=== PATIENT | female | born 1940 | race Caucasian/White ===

== ENCOUNTER → 2017-10-21 12:01 | Outpatient (CLI) | payer MEDICARE, BC ==
[2015-01-01 09:54] VITALS: BMI 23.8
[~2017-10-21 12:01] MED LIST: ACIPHEX20 MG PO; ALTACE2.5 MG PO; ARICEPT5 MG PO; BAYER CHEWABLE81 MG PO; CALTRATE 600 M600 M1 PO; FARXIGA10 MG PO; HYDROCHLOROTHIA25 MG PO; LOVAZA1 G PO; METFORMIN HCL500 M1 PO; MOBIC7.5 MG PO; MYRBETRIQ25 MG PO; PRAVACHOL40 MG PO; TOPROL XL50 MG PO; VITAMIN D31000 UNIT PO; [UNRECOGNIZED DRUG - OTHER] PO
== END | disposition home or self-care (01) ==
LOC: D.CT 12:01
DX: N30.00 Acute cystitis without hematuria (principal)

== ENCOUNTER → 2018-06-16 12:13 | Outpatient (CLI) | payer MEDICARE, BC ==
[2015-01-01 09:54] VITALS: BMI 23.8
== END | disposition home or self-care (01) ==
LOC: D.NM 12:13
DX: R10.9 Unspecified abdominal pain (principal)

== ENCOUNTER → 2019-01-03 09:21 | Outpatient (CLI) | payer MEDICARE, BC ==
[2015-01-01 09:54] VITALS: BMI 23.8
== END | disposition home or self-care (01) ==
LOC: D.HCCARDIO 09:21
PROVIDERS: ATTEND Internal Medicine Cardiovascular Disease
DX: I34.0 Nonrheumatic mitral (valve) insufficiency (principal)

== ENCOUNTER → 2019-02-01 09:03 | Outpatient (CLI) | payer MEDICARE, BC ==
[2015-01-01 09:54] VITALS: BMI 23.8
== END | disposition home or self-care (01) ==
LOC: D.HCCARDIO 09:03
PROVIDERS: ATTEND Internal Medicine Cardiovascular Disease
DX: I20.9 Angina pectoris, unspecified (principal)

== ENCOUNTER 2019-02-16 07:27 | Outpatient (CLI) | payer MEDICARE, BC ==
[~2019-02-16] VITALS: Ht 165.1 cm; Wt 68.2 kg
--- NOTE | ~2019-02-16 | HEMODYNAMI ---
PATIENT:IRAM QUIGLEY MEDICAL RECORD: [id number] : 38 LOCATION:[facility] ADMISSION DATE: 02/16/19 Generatedon:02/16/201912:23 Patient name: IRAM QUIGLEY Patient #: [id number] SSN : : 1940 Date of study: 02/16/2019 Page: Of Hemodynamic Procedure Report Patient Data Patient Demographics Procedure consent was obtained First Name: IRAM Gender: Female Last Name: SORAIDA : 1940 Middle Initial: ANSELMO Age: 78 year(s) Patient #: [id number] Race: Unknown Additional ID: [id number] Contact details [address]: [address] [place] [address] [place] [facility] [place] Zip code: [address] Past Medical History Allergies Allergen Reaction Date Comments Reported Penicillins 01/01/2015 Other allergy 01/01/2015 NEXIUM, PRILOSEC Admission Admission Data Admission Date: 02/16/2019 Admission Time: 7:27 Procedure Procedure Types Cath Procedure Diagnostic Procedure C LHC w/Coronaries Procedure Description Procedure Date Procedure Date: 02/16/2019 Procedure Start Time: 12:08 Procedure End Time: 12:20 Procedure Staff Name Function Oswaldo Gong MD Performing Physician Maya Steward RT Monitor Amanda Maya RT Scrub Debbie Walker RN Nurse Procedure Data Cath Procedure Fluoroscopy Diagnostic fluoroscopy Total fluoroscopy Time: 1.6 time: 1.6 min min Diagnostic fluoroscopy Total fluoroscopy dose: 401 dose: 401 mGy mGy Contrast Material Contrast Material Type Amount (ml) Isovue 370 38 Entry Location Entry Primary Successful Side Size Upsize Upsize Entry Closure Shelton ccessful Closure Location (Fr) 1 (Fr) 2 (Fr) Remarks Device Remarks Radial Right 6 Fr Mechanical artery Short Compression Estimated blood loss: 5 ml Diagnostic catheters Device Type Used For End Catheter Placement DIAGNOSTIC [place] 110cm 5 Multi-vessel Fr catheter ([id number]) Angiography Procedure Complications No complications Procedure Medications Medication Administration Route Dosage 0.9% NaCl I.V. 100 ml/hr Oxygen etCO2 Nasal cannula 2 l/min Lidocaine 2% added to field 20 Heparin Flush Bag added to field 2 bags (1000units/500ml NS) Radial Cocktail added to field 1 syringe (Verapamil 2mg/Nitro 400mcg/Heparin 1500units) Versed I.V. 2 mg Fentanyl I.V. 50 mcg Fentanyl I.V. 50 mcg Hemodynamics Rest Heart Rate: 81 (bpm) Pressure Samples Time Site Value (mmHg) Purpose Heart Use Rate(bpm) 12:13 LV 134/-11,1 Snapshot 85 12:14 AO (85) Pullback 73 12:14 LV 132/-11,-10 Pullback 73 Gradients Valve Time Site 1 Site Mean SEP/DFP Peak To Heart Use 2 (mmHg) (sec/min) Peak Rate (mmHg) (bpm) Aortic 12:14 LV AO 73 132/-11,-10 (85) Snapshots Pre Cath Intra NCS Post Cath Vital Signs Time Heart Resp SPO2 etCO2 NIBP (mmHg) Rhythm Pain Sedation Rate (ipm) (%) (mmHg) Status Level (bpm) 11:57:41 82 12 100 31.6 152/87(138) NSR 0 (11) 10(A) , No pain 12:01:57 80 16 100 17.3 165/83(135) NSR 0 (11) 10(A) , No pain 12:06:21 82 18 97 18.6 155/78(107) NSR 0 (11) 10(A) , No pain 12:10:41 80 17 96 14.3 155/78(129) NSR 0 (11) 10(A) , No pain 12:15:41 82 16 97 11.3 Measuring NSR 0 (11) 10(A) , No pain 12:15:49 82 16 98 11.3 127/62(102) NSR 0 (11) 9(A) , No pain 12:20:56 84 13 98 14 153/71(115) NSR 0 (11) 10(A) , No pain Medications Time Medication Route Dose Verified Delivered Reason Notes E ffectiveness by by 11:56:52 0.9% NaCl I.V. 100 Oswaldo Debbie used for ml/hr Beltran Walker glass bender 11:56:58 Oxygen etCO2 2 l/min Oswaldo Debbie used for Nasal Beltran Walker procedure cannula RN 11:57:04 Lidocaine 2% added 20ml Oswaldo Oswaldo for local to vial Beltran Gong MD anesthetic field 11:57:10 Heparin Flush added 2 bags Oswaldo Oswaldo used for Bag to Beltran Gong MD procedure (1000units/500ml field NS) 11:57:16 Radial Cocktail added 1 Oswaldo Oswaldo used for (Verapamil to syringe Beltran Gong MD procedure 2mg/Nitro field 400mcg/Heparin 1500units) 12:05:03 Versed I.V. 2 mg Oswaldo Debbie for Beltran Walker sedation RN 12:05:08 Fentanyl I.V. 50 mcg Oswaldo Debbie for Beltran Walker sedation RN 12:10:41 Fentanyl I.V. 50 mcg Oswaldo Debbie for Beltran Walker sedation manufacturing laborer Log Time Note 11:43:52 Amanda Maya RT(R) sent for patient. Start room use. 11:43:53 Time tracking: Regular hours (M-F 7:00 - 5:00) 11:43:58 Plan of Care:Hemodynamics will remain stable., Cardiac rhythm will remain stable., Comfort level will be maintained., Respiratory function will remain adequate., Patient/ family verbilizes understanding of procedure., Procedure tolerated without complication., Recovers from procedure without complications.. 11:56:41 Vital chart was started 11:56:52 0.9% NaCl 100 ml/hr I.V. was administered by Debbie Walker RN; used for procedure; 11:56:58 Oxygen 2 l/min etCO2 Nasal cannula was administered by Debbie Walker RN; used for procedure; 11:57:04 Lidocaine 2% 20ml vial added to field was administered by Oswaldo Gong MD; for local anesthetic; 11:57:10 Heparin Flush Bag (1000units/500ml NS) 2 bags added to field was administered by Oswaldo Gong MD; used for procedure; 11:57:16 Radial Cocktail (Verapamil 2mg/Nitro 400mcg/Heparin 1500units) 1 syringe added to field was administered by Oswaldo Gong MD; used for procedure; 12:02:26 Patient received from Pre/Post Procedure Room to [facility] 2 Alert and oriented. Tansferred to table in Supine position. 12:02:27 Warm blankets applied, and keerthi hugger turned on for patient comfort. 12:02:28 Correct patient and procedure confirmed by team. 12:02:29 Signed procedure consent form obtained from patient. 12:02:30 ECG and BP/O2 sat monitors applied to patient. 12:02:31 Baseline sample Acquired. 12:02:34 Rhythm: sinus rhythm 12:02:37 Full Disclosure recording started 12:02:40 H&P Date Dictated: 02/16/2019 Within 30 days and on chart., H&P Addendum completed by physician on day of procedure. (MUST COMPLETE FOR ALL OUTPATIENTS). 12:02:42 Pre-procedure instructions explained to patient. 12:02:42 Pre-op teaching completed and patient verbalized understanding. 12:02:43 Family in waiting room. 12:02:45 Patient NPO since Midnight. 12:02:47 Is the patient allergic to Iodine/contrast media? Unknown. 12:02:59 Was the patient premedicated? Yes 12:03:00 Is patient on blood thinner?No 12:03:01 Patient diabetic? Yes. 12:03:02 If diabetic: On Metformin? Yes 12:03:05 If on Metformin: Last Dose? 02/14/2019 12:03:07 Previous problem with sedation/anesthesia? No ? 12:03:09 Snore? No 12:03:10 Sleep apnea? No 12:03:11 Deviated septum? No 12:03:11 Opens mouth fully? Yes 12:03:12 Sticks out tongue? Yes 12:03:14 Airway obstruction? No ? 12:03:16 Dentures? No ? 12:03:20 Pre procedure: right dorsailis pedis pulse 2+ Normal; easily identifiable; not easily obliterated 12:03:22 Pre procedure: left dorsailis pedis pulse 2+ Normal; easily identifiable; not easily obliterated 12:03:24 Patient pain scale 0/10 ?. 12:03:26 Modified Wm's test Radial < 7 seconds 12:03:30 IV patent on arrival in left forearm with 0.9% NaCl at KVO. 12:03:32 Lab results completed and on chart. 12:03:35 Right Radial & Right Groin area was prepped with chlora-prep and draped in sterile fashion 12:03:36 Alarms reviewed by RGasper N. 12:03:37 Sharps counted by scrub and verified by [email or web address] 12:03:40 Physician arrived 12:03:41 --------ALL STOP TIME OUT------ 12:03:42 Final Timeout: patient, procedure, and site verified with staff and physician. All members of the team are in agreement. 12:03:44 Right Radial & Right Groin site verified by team. 12:03:48 Maximum allowable Isovue 370 dose 300ml. Physician notified. (300ml for normal creatinines. For patients with creatinine of 1.7 or higher multiply weight(kg) x 5 divided by creatinine.) 12:03:51 Fire Safety Assessment: A--An alcohol-based skin anteseptic being used preoperatively., C--Open oxygen or nitrous oxide is being used., D--An ESU, laser, or fiber-optic light is being used. 12:03:53 Physical assessment completed. ASA score P 2 - A patient with mild systemic disease as per Oswaldo Gong MD. 12:03:56 Sedation plan: IV Moderate Sedation Medication:Versed, Fentanyl 12:05:03 Versed 2 mg I.V. was administered by Debbie Walker RN; for sedation; 12:05:08 Fentanyl 50 mcg I.V. was administered by Debbie Walker RN; for sedation; 12:05:56 Use device set Radial Dx or PCI 12:05:57 ACIST Syringe (08557) opened to sterile field. 12:05:57 Medline Cath Pack ([id number]) opened to sterile field. 12:05:58 Bag Decanter (2002S) opened to sterile field. 12:05:58 DIAGNOSTIC WIRE .035 260cm J wire (202956) opened to sterile field. 12:05:58 ACIST Hand Control (15892) opened to sterile field. 12:05:59 ACIST Manifold (69593) opened to sterile field. 12:05:59 Tegaderm 4 x 4 (1626W) opened to sterile field. 12:06:00 MBrace Wrist Support ([id number]) opened to sterile field. 12:06:01 NEEDLE Cook 21G 4cm Radial (M29417) opened to sterile field. 12:06:02 SHEATH 6FR Slender (72-1060) opened to sterile field. 12:08:52 Procedure started. 12:08:56 Local anesthetic to right radial artery with Lidocaine 2% by Oswaldo Gong MD.INITIAL ACCESS ONLY 12::41 Fentanyl 50 mcg I.V. was administered by Debbie Walker RN; for sedation; 12:11:22 A 6 Fr Short sheath was inserted into the Right Radial artery 12:11:28 A DIAGNOSTIC [place] 110cm 5 Fr catheter (375872) was advanced over the wire and used for Multi-vessel Angiography. 12:13:46 LV hemodynamics recorded. 12:13:47 LV gram done using TAPIA 12:13:49 Injector settings: Ml/sec: 5, Volume: 15, 12:13:56 EF : 60 % 12:14:46 LCA angiography performed. 12:14:50 Injector settings: Ml/sec: 3, Volume: 6, 12:16:09 RCA angiography performed. 12:16:12 Injector settings: Ml/sec: 3, Volume: 6, 12:16:30 TR BAND Standard ([id number]) opened to sterile field. 12:16:33 TR BAND Large ([id number]) opened to sterile field. 12:17:02 Sheath removed intact; hemostasis achieved with Mechanical Compression to the Right Radial artery. 12:17:11 Procedure ended.(Physican Out) 12:17:23 Fluoroscopy time 01.60 minutes. 12:17:27 Flurop Dose total: 401 12:17:27 Fluoroscopy dose: 401 mGy 12:17:30 Contrast amount:Isovue 370 38ml. 12:17:31 Sharps counted by scrub and verified by R.N. 12:17:34 TR band inflated with 10cc of air. 12:17:35 Insertion/operative site no bleeding no hematoma. 12:17:38 Post right radial artery:stable 12:17:39 Post Procedure Pulses reassessed and unchanged 12:17:41 Post procedure rhythm: unchanged. 12:17:44 Estimated blood loss: 5 ml 12:17:52 Post procedure instruction explained to patient.Patient verbalizes understanding. 12:17:52 Patient needs reinforcement of post procedure teaching. 12:18:24 Procedure and supply charges have been captured, reviewed, submitted and are correct. 12:19:38 Procedure Complication : No complications 12:19:45 Vital chart was stopped 12:19:45 See physician's report for complete and final results. 12:19:57 Report given to Pre/Post Procedure Room. 12:20:00 Patient transfered to Pre/Post Procedure Room with Stretcher. 12:20:03 Procedure ended. 12:20:03 Full Disclosure recording stopped 12:20:06 End room use (Document Last) Device Usage Item Name Manufacture Quantity Catalog Hospital Part Current Minimal Lot# / Number Charge Number Stock Stock Serial# Code ACIST Acist 1 62808 [id number] 680529 393181 20 Syringe Medical (12633) Systems Inc Medline Medline 1 [id number] 414062 79316 818399 5 Cath Pack ([id number]) Bag Microtek 1 2001S 101816 94598 571957 5 Decanter Medical Inc. () DIAGNOSTIC [place] 1 219461 765649 832008 253538 30 WIRE .035 260cm J wire (460657) ACIST Hand Acist 1 16412 658815 112604 971136 5 Control Medical (66950) Systems Inc ACIST Acist 1 84996 413064 591258 304383 5 Manifold Medical (89850) Systems Inc Tegaderm 4 3M 1 1626W 090002 935056 166625 5 x 4 (1626W) MBrace Advanced 1 140-0250-00 182341 11257 865254 5 Wrist Vascular Support Dynamics ([id number]) NEEDLE Echolocation Medical 1 Z67680 684627 953386 264673 5 21G 4cm Radial (F78693) SHEATH 6FR Terumo 1 [id number] 878739 131488 901103 5 Slender (80-1060) DIAGNOSTIC Terumo 1 40-5013 800544 480513 038811 5 [place] 110cm 5 Fr catheter (680050) TR BAND Terumo 1 [id number] 731274 233973 869688 40 Standard (EKU20VME) TR BAND Terumo 1 [id number] 203589 185356 481385 40 Large ([id number]) Signature Audit Mcgee Stage Time Signature Unsigned Intra-Procedure 02/16/2019 Maya Steward 12:23:52 PM RT(R) Signatures Monitor : Maya Steward RT Signature : Date : Time : [address] [place] [address]
[2019-02-16 08:28] VITALS: BP 166/87; Ht 165.1 cm; Wt 68.2 kg
[2019-02-16 08:56] LABS: BASOPHILS 0.4 % (0-2); EOSINOPHILS 3.6 % (0-7); HEMATOCRIT 37.5 % (36.0-48.0); HEMOGLOBIN 12.3 g/dL (12-16); IMMATURE GRANULOCYTES 0.2 % (0-5); LYMPHOCYTES 32.9 % (15-50); MCH 28.8 pg (26.0-34.0); MCHC 32.8 g/dL (31.0-37.0); MCV 87.8 fL (80.0-100.0); MEAN PLATELET VOLUME 10.1 fL (7.4-10.4); MONOCYTES 11.9 % (2-11); PLATELET COUNT 202 10x3/uL (130-400); RBC 4.27 10x6/uL (4.00-5.40); RDW 13.3 % (11.5-14.5); WBC 5.6 10x3/uL (4.8-10.8)
[2019-02-16 09:08] LABS: CALC OSMOLALITY 292 mosm/kg (275-300); CARBON DIOXIDE 31.3 mmol/L (21.0-32.0); CHLORIDE - SERUM 105 mmol/L (98-107); CREATININE - SERUM 0.7 mg/dL (0.6-1.3); POTASSIUM - SERUM 4.3 mmol/L (3.5-5.1); SODIUM 144 mmol/L (136-145); UREA NITROGEN 25 mg/dL (7-18); eGFR NON AFRICAN AMERICAN 85 mL/min (90-120)
[2019-02-16 09:13] LABS: GLUCOSE 134 mg/dL (74-106)
--- NOTE | 2019-02-16 12:41 | NUR ---
RECIEVED TO ROOM VIA STRETCHER FROM RESIDENTIAL BUILDER WITH TR BAND TO R/WRIST CDI NO BLEEDING OR HEMATOMA NOTED. PATIENT CONNECTED TO MONITOR FOR OBSERVATION WITH HR 82 BP 173/67 CHEST PAIN IS DENIED
--- NOTE | 2019-02-16 12:45 | NUR ---
TR BAND TO R/WRIST IS CDI WITH NO BLEEDING OR HEMATOMA. PATIENT TOLERATING SANDWICH AND SODA WITH NAUSEA DENIED. CALL LIGHT IS IN REACH WITH AT BEDSIDE
--- NOTE | 2019-02-16 13:09 | NUR ---
RESTING QUIETLY NO DISTRESS NOTED. VSS AND TR BAND IS CDI
--- NOTE | 2019-02-16 13:28 | NUR ---
REPOSITIONED TO HOB UP 30 FOR COMFORT. TR BAND TO R/WRIST REMAINS CDI WITH NO BLEEDING OR HEMATOMA. VSS AND CHEST PAIN IS DENIED
--- NOTE | 2019-02-16 13:45 | NUR ---
PIV REMOVED WITH PATIENT UP TO BATHROOM NO DISTRESS. TR BAND REMAINS CDI WITH NO BLEEDING NOTED
--- NOTE | 2019-02-16 14:07 | NUR ---
2 CC AIR REMOVED FROM TR BAND WITH NO BLEEDING NOTED
--- NOTE | 2019-02-16 14:10 | NUR ---
2 CC AIR REMOVED FROM TR BAND NO BLEEDING OR HEMATOMA NOTED. PATIENT DENIED CHEST PAIN.
--- NOTE | 2019-02-16 14:17 | NUR ---
VERBAL AND WRITTEN DISCHARGE GONE OVER WITH PATIENT AND BOTH VERBALIZED UNDERSTANDING. TR BAND TO R/WRIST IS CDI WITH 2 CC AIR REMOVED
--- NOTE | 2019-02-16 14:30 | NUR ---
TR BAND REMOVED WITH DRESSING APPLIED NO BLEEDING NOTED. PATIENT LEFT VIA WC TO PARKING FOR RIDE HOME WITH FAMILY NO DISTRESS
== END 2019-02-16 14:31 | disposition home or self-care (01) ==
LOC: D.CATH 07:27
PROVIDERS: ATTEND Internal Medicine Cardiovascular Disease
DX: I20.9 Angina pectoris, unspecified (principal); Z01.812 Encounter for preprocedural laboratory examination

== ENCOUNTER 2019-04-26 11:13 | Emergency (ER) | payer MEDICARE, BC ==
[~2019-04-26] VITALS: Ht 165.1 cm; Wt 68.2 kg
[2019-04-26 11:31] VITALS: Ht 165.1 cm; Wt 68.2 kg
[2019-04-26] MEDS ORDERED: TRULICITY0.75 MG/0. SC (11:36)
[2019-04-26] MEDS ORDERED: OSPHENA (11:37)
[2019-04-26] MEDS ORDERED: ICAPS (11:38)
[2019-04-26] MEDS ORDERED: HYDROCODON-ACE1 EAC7 PO (13:43)
[2019-04-26 14:18] VITALS: BP 151/64
== END 2019-04-26 14:17 | disposition home or self-care (01) ==
LOC: D.ER 11:13
DX: S61.310A Laceration without foreign body of right index finger with damage to nail, initial encounter (principal); W23.0XXA Caught, crushed, jammed, or pinched between moving objects, initial encounter; E11.40 Type 2 diabetes mellitus with diabetic neuropathy, unspecified; I10 Essential (primary) hypertension; S62.601A Fracture of unspecified phalanx of left index finger, initial encounter for closed fracture

== ENCOUNTER 2019-06-01 08:00 | Day surgery (SDC) | payer MEDICARE, BC ==
[2019-05-31 15:15] LABS: HEMATOCRIT 37.7 % (36.0-48.0); MCH 29.9 pg (26.0-34.0); MCHC 34.5 g/dL (31.0-37.0); MCV 86.7 fL (80.0-100.0); RBC 4.35 10x6/uL (4.00-5.40); RDW 13.9 % (11.5-14.5); WBC 6.3 10x3/uL (4.8-10.8)
[2019-05-31 15:39] LABS: ANION GAP 15.9 mmol/L (8-16); CALCIUM 8.9 mg/dL (8.5-10.1); CARBON DIOXIDE 26.3 mmol/L (21.0-32.0); CREATININE - SERUM 1.1 mg/dL (0.6-1.3); POTASSIUM - SERUM 4.2 mmol/L (3.5-5.1)
[~2019-06-01] VITALS: Ht 165.1 cm; Wt 68.9 kg
[~2019-06-01 08:00] MED LIST changes: +ALTACE1.25 MG PO; -ALTACE2.5 MG PO; +HYDROCODON-ACE1 EAC7 PO; +ICAPS; +OSPHENA; +TRULICITY0.75 MG/0. SC; +ZOFRAN ODT4 MG/UDTAB; +ZPAK PO
[2019-06-01] MEDS ORDERED: MEDROL4 MG PO (08:20)
[2019-06-01] MEDS ORDERED: CIPRO500 MG PO (08:20)
[2019-06-01 08:22] VITALS: BP 183/84; Ht 165.1 cm; Wt 68.9 kg
--- NOTE | 2019-06-01 08:54 | NUR ---
ANTISEPTIC NASAL SWABS NOT USED DUE TO ALLERGY
[2019-06-01] MEDS ORDERED: HYDROCODON-ACE1 EA10 PO (11:36)
--- NOTE | 2019-06-01 13:21 | NUR ---
DC INSTRUCTIONS REVIEWED AT THIS TIME, PT VERBALIZES UNDERSTANDING. PT IV REMOVED AT THIS TIME, INTACT NO REDNESS OR SWELLING NOTED AT SITE.
--- NOTE | 2019-06-01 13:30 | NUR ---
PT LEAVING OPS AT THIS TIME VIA WC. NAD NOTED.
--- NOTE | 2019-06-04 14:19 | OP ---
PATIENT NAME: IRAM QUIGLEY MEDICAL RECORD: [id number] :38 LOCATION:D.OPS ADMISSION DATE: SURGEON: PHUONG DIAMOND MD DATE OF OPERATION: 06/01/2019 PREOPERATIVE DIAGNOSIS: Mucinous cyst, left thumb IP joint. POSTOPERATIVE DIAGNOSIS: Mucinous cyst, left thumb IP joint. PROCEDURE: Excision of mucinous cyst, left thumb IP joint. SURGEON: Phuong Diamond MD ANESTHESIA: General. INTRAOPERATIVE COMPLICATIONS: None. SUMMARY OF PATHOLOGIC FINDINGS: The patient had a very small rent in the thumb capsule. The cyst was removed in its entirety and sent for specimen and the rent in the capsule was oversewn with a 3-0 Vicryl. OPERATIVE SUMMARY IN DETAIL: After obtaining the appropriate preoperative orthopedic surgery consent as well as anesthetic consultation, evaluation and clearance, the patient was brought to the operating room and placed on the operating table in supine position. After adequate general laryngeal mask airway was administered, a tourniquet was placed about the proximal aspect of the left upper extremity. Left upper extremity was then prepped and draped in routine sterile fashion. The arm was elevated and exsanguinated and tourniquet was inflated to 250 mmHg. Elliptical incision was made about the area of the cyst including skin tag. This was taken down to the level of the capsule. When capsule was noted, the cyst was excised in its entirety. This was then irrigated and the small rent in the IP capsule was closed with 3-0 Vicryl in ulgoas-oc-crbat fashion. This was then closed with 4-0 Prolene in interrupted fashion by Bishnu Kuo. Digital block was applied. The patient was awakened and taken to recovery room in stable condition. All final needle and sponge counts were correct. TRANSINT:[id number] Voice Confirmation ID: [id number] DOCUMENT ID: [id number] PHUONG DIAMOND MD at 1419 CC: [id number] DICTATION DATE: 06/02/19905 TELEGRAPH MESSENGER: 06/02/19 0938 [facility] 06/01/19 [address] [place] [address]
== END 2019-06-01 13:30 | disposition home or self-care (01) ==
LOC: D.OPS 08:00 → D.PAN 09:10 → D.OPS 09:30 → D.PAN 10:30 → D.OPS 11:10
PROVIDERS: Anesthesiology; ATTEND Orthopaedic Surgery
DX: M25.842 Other specified joint disorders, left hand (principal); Z01.812 Encounter for preprocedural laboratory examination

== ENCOUNTER 2019-12-13 13:54 | Inpatient (IN) | payer MEDICARE, BC ==
[~2019-12-13] VITALS: Ht 165.1 cm; Wt 70.5 kg
[~2019-12-13 13:54] MED LIST changes: +CIPRO500 MG PO; +HYDROCODON-ACE1 EA10 PO; -ICAPS; +ICAPS PO; +MEDROL4 MG PO; -OSPHENA; +OSPHENA PO; -ZOFRAN ODT4 MG/UDTAB; +ZOFRAN ODT4 MG/UDTAB PO
--- NOTE | 2019-12-13 14:24 | NUR ---
FLU, RSV, AND STREP SWABS COLLECTED AND SENT TO LAB VIA TUBE SYSTEM
[2019-12-13 15:00] VITALS: BP 147/57
[2019-12-13 15:11] LABS: BASOPHILS 0.4 % (0-2); EOSINOPHILS 0.4 % (0-7); HEMATOCRIT 38.3 % (36.0-48.0); HEMOGLOBIN 12.4 g/dL (12-16); LYMPHOCYTES 21.6 % (15-50); MCH 28.7 pg (26.0-34.0); MCHC 32.4 g/dL (31.0-37.0); MCV 88.7 fL (80.0-100.0); MEAN PLATELET VOLUME 9.8 fL (7.4-10.4); MONOCYTES 13.2 % (2-11); NEUTROPHILS 64.4 % (40-80); RBC 4.32 10x6/uL (4.00-5.40); RDW 13.5 % (11.5-14.5); WBC 5.5 10x3/uL (4.8-10.8)
[2019-12-13 15:15] LABS: PLATELET COUNT 163 10x3/uL (130-400)
[2019-12-13 15:33] LABS: ANION GAP 15.2 mmol/L (8-16); CALCIUM 8.8 mg/dL (8.5-10.1); CARBON DIOXIDE 25.5 mmol/L (21.0-32.0); CREATININE - SERUM 1.1 mg/dL (0.6-1.3); POTASSIUM - SERUM 3.7 mmol/L (3.5-5.1)
[2019-12-13 15:37] LABS: BILIRUBIN - TOTAL 0.22 mg/dL (0.2-1.3); PROTEIN - SERUM 6.5 g/dL (6.4-8.2)
--- NOTE | 2019-12-13 15:49 | NUR ---
POSITIVE STREP CALLED FROM LAB. REPORTED TO PROVIDER NICOLA.
[2019-12-13 16:00] VITALS: BP 158/68
[2019-12-13] MEDS ORDERED: ALTACE1.25 MG PO ×2 (18:41→18:42)
[2019-12-13] MEDS ORDERED: TOPROL XL25 MG PO (18:41)
[2019-12-13] MEDS ORDERED: DONEPEZIL HCL10 MG PO (18:43)
--- NOTE | 2019-12-13 18:53 | NUR ---
REPORT GIVEN TO ZULMA LYONS
[2019-12-14] VITALS (7 sets, daily range): BP systolic 105–140; BP diastolic 53–70; Ht 165.1 cm; Wt 70.5 kg
[2019-12-14 04:38] LABS: BASOPHILS 0.2 % (0-2); EOSINOPHILS 1.9 % (0-7); HEMATOCRIT 36.4 % (36.0-48.0); HEMOGLOBIN 11.6 g/dL (12-16); LYMPHOCYTES 26.6 % (15-50); MCH 28.4 pg (26.0-34.0); MCHC 31.9 g/dL (31.0-37.0); MONOCYTES 12.5 % (2-11); NEUTROPHILS 58.8 % (40-80); PLATELET COUNT 164 10x3/uL (130-400); RBC 4.09 10x6/uL (4.00-5.40); RDW 13.6 % (11.5-14.5); WBC 5.4 10x3/uL (4.8-10.8)
[2019-12-14 04:39] LABS: APTT 29.3 SECONDS (22.8-39.4); INR 1.02 (0.85-1.17); PROTIME 13.4 SECONDS (11.6-15.0)
[2019-12-14 05:02] LABS: ANION GAP 10.9 mmol/L (8-16); CALCIUM 8.6 mg/dL (8.5-10.1); CARBON DIOXIDE 29.1 mmol/L (21.0-32.0); CREATININE - SERUM 1.1 mg/dL (0.6-1.3); MAGNESIUM - SERUM 1.6 mg/dL (1.8-2.4); PHOSPHOROUS 4.1 mg/dL (2.5-4.9)
--- NOTE | 2019-12-14 09:36 | NUR ---
I have reviewed this patient and I concur with the Shift Assessment completed by the Licensed Practical Nurse today this shift.
--- NOTE | 2019-12-14 12:17 | NUR ---
PT RESTING IN BED, VSS. TRAY SET UP PROVIDED. FSBS OBTAINED. CALL LIGHT WITHIN REACH, WILL CONT TO FOLLOW POC
[2019-12-14 15:15] LABS: BILIRUBIN NEGATIVE (NEGATIVE); GLUCOSE NEGATIVE (NEGATIVE); KETONE NEGATIVE (NEGATIVE); NITRITE NEGATIVE (NEGATIVE); UROBILINOGEN NORMAL (NORMAL)
--- NOTE | 2019-12-14 17:32 | NUR ---
PT RESTING IN BED, VSS AND WNL. BED ALARM ON. NO SIGNS OF DISTRESS NOTED, CALL LIGHT WITHIN REACH, WILL CONT TO FOLLOW POC
[2019-12-14 18:07] LABS: T4 THYROXINE 10.2 ug/dL (4.7-13.3); THYROID STIMULATING HORMONE 1.71 uIU/mL (0.36-3.74)
[2019-12-15] VITALS (7 sets, daily range): BP systolic 105–149; BP diastolic 60–76
[2019-12-15 06:49] LABS: ANION GAP 15.2 mmol/L (8-16); CALCIUM 8.4 mg/dL (8.5-10.1); CARBON DIOXIDE 27.4 mmol/L (21.0-32.0); MAGNESIUM - SERUM 1.5 mg/dL (1.8-2.4); POTASSIUM - SERUM 3.6 mmol/L (3.5-5.1)
[2019-12-15 07:00] LABS: BASOPHILS 0.2 % (0-2); EOSINOPHILS 2.8 % (0-7); HEMATOCRIT 36.3 % (36.0-48.0); HEMOGLOBIN 11.7 g/dL (12-16); IMMATURE GRANULOCYTES 0.2 % (0-5); LYMPHOCYTES 25.5 % (15-50); MCH 28.5 pg (26.0-34.0); MCHC 32.2 g/dL (31.0-37.0); MCV 88.3 fL (80.0-100.0); MEAN PLATELET VOLUME 9.9 fL (7.4-10.4); MONOCYTES 11.3 % (2-11); PLATELET COUNT 173 10x3/uL (130-400); RBC 4.11 10x6/uL (4.00-5.40); RDW 13.4 % (11.5-14.5); WBC 6.5 10x3/uL (4.8-10.8)
--- NOTE | 2019-12-15 07:30 | NUR ---
PT RESTING IN BED, VSS AND WNL. CALL LIGHT WITHIN REACH. SHIFT ASSESSMENT PERFORMED, DENIES ANY FURTHER NEEDS AT THIS TIME, WILL CONT TO FOLLOW POC
--- NOTE | 2019-12-15 12:17 | NUR ---
TRAY SET UP PROVIDED, VSS AND WNL. FSBS OBTAINED. CALL LIGHT WITHIN REACH, NO SIGNS OF DISTRESS NOTED AT THIS TIME, DENIES ANY FURTHER NEEDS, WILL CONT TO FOLLOW POC
--- NOTE | 2019-12-15 16:21 | MORECARE ---
CASE MANAGEMENT DISCHARGE SUMMARY PATIENT: IRAM QUIGLEY UNIT: [id number] ADM DATE: 12/13/19 AGE: 79 : 39 SEX: F ROOM/BED: D.2133 AUTHOR: SARAH GANDARA PHYSICIAN: REFERRING PHYSICIAN: CHRISSY BIRMINGHAM MD DATE OF SERVICE: 12/15/19 Discharge Plan Patient Name: IRAM QUIGLEY Facility: [facility]:[place] : 1940 Planned Disposition: Home Anticipated Discharge Date: Discharge Date: Expected LOS: Initial Reviewer: [email or web address] Initial Review Date: 12/13/2019 Generated: 12/15/19 5:20 pm DCPIA - Discharge Planning Initial Assessment Updated by [email or web address]: Alisia Morfin on 12/15/19 4:17 pm * Is the patient Alert and Oriented? Yes * How many steps to enter\exit or inside your home? * PCP VICENTE * [facility] * Preadmission Environment Home with Family * ADLs Independent * Other Equipment BSC, NEBULIZER * List name and contact numbers for known caregivers / representatives who currently or will assist patient after discharge: GILMA - DAUGHTER - [phone] NAHUN - - [phone] * Verbal permission to speak to the caregivers and representatives has been obtained from the patient. N/A * Community resources currently utilized None * Additional services required to return to the preadmission environment? No * Can the patient safely return to the preadmission environment? Yes * Has this patient been hospitalized within the prior 30 days at any hospital? No Patient Name: IRAM QUIGLEY Page 60305 at 1621 All edits/amendments must be made on the electronic document DICTATION DATE: 12/15/191619 BONE DRIER: VENKATA 12/15/191619 RPT#: [id number] DC DATE: STATUS: ADM IN [facility] [address] [place] [address] END OF REPORT
--- NOTE | 2019-12-15 16:28 | MORECARE ---
CASE MANAGEMENT DISCHARGE SUMMARY PATIENT: IRAM QUIGLEY UNIT: [id number] ADM DATE: 12/13/19 AGE: 79 : 39 SEX: F ROOM/BED: D.2133 AUTHOR: SARAH GANDARA PHYSICIAN: REFERRING PHYSICIAN: CHRISSY BIRMINGHAM MD DATE OF SERVICE: 12/15/19 Discharge Plan Patient Name: IRAM QUIGLEY Facility: [facility]:[place] : 1940 Planned Disposition: Home Anticipated Discharge Date: Discharge Date: Expected LOS: Initial Reviewer: [email or web address] Initial Review Date: 12/13/2019 Generated: 12/15/19 5:27 pm Comments DCP- Discharge Planning Updated by [email or web address]: Alisia Morfin on 12/15/19 3:[address] Patient Name: IRAM QUIGLEY Admission Status: ER Accout number: [id number] Admission Date: 12-13-2019 : 1940 Admission Diagnosis:FEVER, UNSPECIFIED Attending: CHRISSY BIRMINGHAM Current LOS: 2 Anticipated DC Date: Planned Disposition: Home Primary Insurance: MEDICARE A & B Discharge Planning Comments: CM met with patient to complete initial dcplanning assessment. CM educated patient on the CM role and verbal consent given by patient to complete assessment. Patient lives at home with her spouse where she is independent with her care. At discharge patient plans to return home and feels this is a safe discharge. CM discussed availability of home health, rehab services, and medical equipment. and plans to resume care with them upon discharge. PARVEEN signed Patient will have family to drive her home upon discharge. Patient denied known discharge needs at this time. CM will continue to follow and will assist as needed with dc plans/needs. Take Away Worker: Alisia Morfin DCPIA - Discharge Planning Initial Assessment Updated by [email or web address]: Alisia Morfin on 12/15/19 4:17 pm * Is the patient Alert and Oriented? Yes * How many steps to enter\exit or inside your home? * PCP VICENTE * [facility] * Preadmission Environment Home with Family * ADLs Independent * Other Equipment BSC, NEBULIZER * List name and contact numbers for known caregivers / representatives who currently or will assist patient after discharge: GILMA - DAUGHTER - [phone] NAHUN - - [phone] * Verbal permission to speak to the caregivers and representatives has been obtained from the patient. N/A * Community resources currently utilized None * Additional services required to return to the preadmission environment? No * Can the patient safely return to the preadmission environment? Yes * Has this patient been hospitalized within the prior 30 days at any hospital? No Last DP export: 12/15/19 3:21 p Patient Name: IRAM QUIGLEY Page 10593 at 1628 All edits/amendments must be made on the electronic document DICTATION DATE: 12/15/191626 WARDROBE MISTRESS: VENKATA 12/15/191626 RPT#: [id number] DC DATE: STATUS: ADM IN [facility] [address] [place] [address] END OF REPORT
--- NOTE | 2019-12-15 17:08 | NUR ---
TRAY SET UP PROVIDED, VSS AND WNL. FSBS CHECKED. CALL LIGHT WITHIN REACH, DENIES ANY FURTHER NEEDS AT THIS TIME, WILL CONT TO FOLLOW POC
--- NOTE | 2019-12-15 20:00 | NUR ---
PT IN BED, AAO X 3, RESP EVEN AND UNLABORED. NO DISTRESS NOTED AT THIS TIME, CL IN REACH, SR UP X 2. NO CONCERNS OR WANTS NOTED.
--- NOTE | 2019-12-16 01:37 | NUR ---
I have reviewed this patient and I concur with the Shift Assessment completed by the Licensed Practical Nurse today this shift.
[2019-12-16 04:00] VITALS: BP 136/84
[2019-12-16 05:27] LABS: BASOPHILS 0.6 % (0-2); EOSINOPHILS 4.3 % (0-7); HEMATOCRIT 36.1 % (36.0-48.0); HEMOGLOBIN 11.7 g/dL (12-16); IMMATURE GRANULOCYTES 0.2 % (0-5); LYMPHOCYTES 37.1 % (15-50); MCH 28.5 pg (26.0-34.0); MCHC 32.4 g/dL (31.0-37.0); MCV 87.8 fL (80.0-100.0); MEAN PLATELET VOLUME 10.2 fL (7.4-10.4); NEUTROPHILS 45.8 % (40-80); PLATELET COUNT 181 10x3/uL (130-400); RBC 4.11 10x6/uL (4.00-5.40); RDW 13.4 % (11.5-14.5); WBC 5.1 10x3/uL (4.8-10.8)
[2019-12-16 05:29] LABS: ANION GAP 14.8 mmol/L (8-16); CALCIUM 8.4 mg/dL (8.5-10.1); CARBON DIOXIDE 28.6 mmol/L (21.0-32.0); CREATININE - SERUM 0.9 mg/dL (0.6-1.3); PHOSPHOROUS 3.3 mg/dL (2.5-4.9); POTASSIUM - SERUM 3.4 mmol/L (3.5-5.1)
[2019-12-16 05:31] LABS: MAGNESIUM - SERUM 1.9 mg/dL (1.8-2.4)
[2019-12-16 08:20] VITALS: BP 128/64
[2019-12-16] MEDS ORDERED: AZITHROMYCIN500 MG PO (13:16)
[2019-12-16] MEDS ORDERED: DIFLUCAN100 MG PO (13:17)
[2019-12-16] MEDS ORDERED: LEVAQUIN750 MG PO (13:18)
--- NOTE | 2019-12-16 14:54 | NUR ---
DC PAPERWORK GONE OVER WITH PT. UNABLE TO SIGN DUE TO ISOLATION. PIV REMOVED CATH TIP FULLY INTACT. ALL VALUBLES PACKED UP AND WAITING FOR DAUGHTER TO PICK HER UP
--- NOTE | 2019-12-17 15:53 | MORECARE ---
CASE MANAGEMENT DISCHARGE SUMMARY PATIENT: IRAM QUIGLEY UNIT: [id number] ADM DATE: 12/13/19 AGE: 79 : 39 SEX: F ROOM/BED: D.0143 AUTHOR: SARAH GANDARA PHYSICIAN: REFERRING PHYSICIAN: CHRISSY BIRMINGHAM MD DATE OF SERVICE: 12/17/19 Discharge Plan Patient Name: IRAM QUIGLEY Facility: [facility]:[place] : 1940 Planned Disposition: Home Anticipated Discharge Date: Discharge Date: 12/16/2019 Expected LOS: Initial Reviewer: [email or web address] Initial Review Date: 12/13/2019 Generated: 12/17/19 4:52 pm Comments DCP- Discharge Planning Updated by [email or web address]: Alisia Morfin on 12/15/19 3:[address] Patient Name: IRAM QUIGLEY Admission Status: ER Accout number: [id number] Admission Date: 12-13-2019 : 1940 Admission Diagnosis:FEVER, UNSPECIFIED Attending: CHRISSY BIRMINGHAM Current LOS: 2 Anticipated DC Date: Planned Disposition: Home Primary Insurance: MEDICARE A & B Discharge Planning Comments: CM met with patient to complete initial dcplanning assessment. CM educated patient on the CM role and verbal consent given by patient to complete assessment. Patient lives at home with her spouse where she is independent with her care. At discharge patient plans to return home and feels this is a safe discharge. CM discussed availability of home health, rehab services, and medical equipment. and plans to resume care with them upon discharge. PARVEEN signed Patient will have family to drive her home upon discharge. Patient denied known discharge needs at this time. CM will continue to follow and will assist as needed with dc plans/needs. Dynamometer Repairer: Alisia Morfin DCPIA - Discharge Planning Initial Assessment Updated by [email or web address]: Alisia Morfin on 12/15/19 4:17 pm * Is the patient Alert and Oriented? Yes * How many steps to enter\exit or inside your home? * PCP ZHANG * Pharmacy [facility] - [facility] [address] * Preadmission Environment Home with Family * ADLs Independent * Other Equipment BSC, NEBULIZER * List name and contact numbers for known caregivers / representatives who currently or will assist patient after discharge: GILMA - DAUGHTER - [phone] NAHUN - - [phone] * Verbal permission to speak to the caregivers and representatives has been obtained from the patient. N/A * Community resources currently utilized None * Additional services required to return to the preadmission environment? No * Can the patient safely return to the preadmission environment? Yes * Has this patient been hospitalized within the prior 30 days at any hospital? No Coverage Notice Reviewer: [id number] Tracie Morfin Notice Issued Date-Time: 12/16/2019 13:40 Notice Type: IM Discharge Notice Notice Delivered To: Patient Relationship to Patient: Self Deputy Program Manager Name: Delivery Method: PHONE - Phone [place] Days: Prior Verbal Notification: Yes Recipient Understood Notice: Yes Recipient Signature: Yes Med Rec Note Co-signed by Attending: Coverage Notice Comment: D/C IMM VIA PHONE WITH PATIENT D/T ISOLATION COPY LEFT WITH NURSE TO BE GIVEN TO PATIENT Last DP export: 12/15/19 3:28 p Patient Name: IRAM QUIGLEY Page 93891 at 1553 All edits/amendments must be made on the electronic document DICTATION DATE: 12/17/191551 TABLET COATER: VENKATA 12/17/191551 RPT#: [id number] DC DATE:12/16/19 STATUS: DIS IN [facility] [address] [place] [address] END OF REPORT
== END 2019-12-16 16:23 | disposition home or self-care (01) | DRG 152 ==
LOC: D.ER 13:54 → D.M2 18:36
PROVIDERS: Emergency Medicine; Family Medicine; Internal Medicine Cardiovascular Disease; ADMIT Emergency Medicine; ATTEND Emergency Medicine
DX: J02.0 Streptococcal pharyngitis (principal); J18.9 Pneumonia, unspecified organism; E78.5 Hyperlipidemia, unspecified; I10 Essential (primary) hypertension; E11.40 Type 2 diabetes mellitus with diabetic neuropathy, unspecified; G89.29 Other chronic pain; M54.9 Dorsalgia, unspecified; I49.1 Atrial premature depolarization; K21.9 Gastro-esophageal reflux disease without esophagitis

== ENCOUNTER 2019-12-22 11:27 | Inpatient (IN) | payer MEDICARE, BC ==
[~2019-12-22] VITALS: Ht 165.1 cm; Wt 70.3 kg
[~2019-12-22 11:27] MED LIST changes: +AZITHROMYCIN500 MG PO; +DIFLUCAN100 MG PO; +DONEPEZIL HCL10 MG PO; +LEVAQUIN750 MG PO; +TOPROL XL25 MG PO
--- NOTE | 2019-12-22 11:49 | NUR ---
AGRICULTURE RESEARCH DIRECTOR AT BEDSIDE AT THIS TIME.
--- NOTE | 2019-12-22 12:00 | NUR ---
URINE SAMPLE COLLECTED AND SENT TO LAB
[2019-12-22 12:06] LABS: BASOPHILS 0.4 % (0-2); HEMATOCRIT 38.6 % (36.0-48.0); HEMOGLOBIN 12.2 g/dL (12-16); IMMATURE GRANULOCYTES 0.3 % (0-5); LYMPHOCYTES 28.4 % (15-50); MCH 28.1 pg (26.0-34.0); MCHC 31.6 g/dL (31.0-37.0); MCV 88.9 fL (80.0-100.0); MEAN PLATELET VOLUME 9.4 fL (7.4-10.4); MONOCYTES 15.4 % (2-11); NEUTROPHILS 52.5 % (40-80); RBC 4.34 10x6/uL (4.00-5.40); RDW 13.8 % (11.5-14.5); WBC 6.9 10x3/uL (4.8-10.8)
[2019-12-22 12:10] LABS: ANION GAP 15.5 mmol/L (8-16); CARBON DIOXIDE 24.6 mmol/L (21.0-32.0); CREATININE - SERUM 1.6 mg/dL (0.6-1.3); POTASSIUM - SERUM 4.1 mmol/L (3.5-5.1)
[2019-12-22 12:14] LABS: PLATELET COUNT 243 10x3/uL (130-400)
[2019-12-22 12:16] LABS: ALBUMIN 3.3 g/dL (3.4-5.0); BILIRUBIN - TOTAL 0.28 mg/dL (0.2-1.3); PROTEIN - SERUM 6.7 g/dL (6.4-8.2)
[2019-12-22 12:25] LABS: SPECIFIC GRAVITY 1.025 (1.005-1.020)
[2019-12-22 12:26] LABS: BILIRUBIN NEGATIVE (NEGATIVE); GLUCOSE NEGATIVE (NEGATIVE); KETONE NEGATIVE (NEGATIVE); NITRITE NEGATIVE (NEGATIVE); UROBILINOGEN NORMAL (NORMAL)
[2019-12-22 12:30] VITALS: BP 111/42
[2019-12-22 15:01] LABS: CKMB 1.2 U/L (0.0-3.6); CREATINE KINASE 89 UL (21-215); MAGNESIUM - SERUM 1.8 mg/dL (1.8-2.4); TROPONIN-I < 0.017 ng/mL (0.000-0.060)
[2019-12-22 19:11] VITALS: BP 113/51
--- NOTE | 2019-12-22 19:13 | NUR ---
REPORT TO SHEN BUENROSTRO
[2019-12-22 22:39] VITALS: BP 111/54
[2019-12-23 01:38] VITALS: BP 111/54; BMI 25.8
--- NOTE | 2019-12-23 01:50 | NUR ---
RECIEVED REPORT FROM GERONIMO RN IN ER AT 1909. ARRIVED TO FLOOR AT 2023 ON STRETCHER. TRSNSFERED SELF TO BED. INFUSING FLAGYL WHEN RECEIVED. ALERT AND ORIENTED X4. C/O DIAHRREA. PLACED IN ISOLATION AND AWAITING COVID TEST RESULTS. IV TO RT FA WITH NO REDNESS OR SWELLING TO SITE. DSG CDI. UP AD REBECA TO B/R. DENIES ANY NEEDS OR PAIN AT THIS TIME.
[2019-12-23 06:53] LABS: BASOPHILS 0.3 % (0-2); EOSINOPHILS 2.7 % (0-7); HEMATOCRIT 33.6 % (36.0-48.0); HEMOGLOBIN 10.7 g/dL (12-16); LYMPHOCYTES 27.7 % (15-50); MCH 28.2 pg (26.0-34.0); MCHC 31.8 g/dL (31.0-37.0); MCV 88.4 fL (80.0-100.0); MEAN PLATELET VOLUME 9.3 fL (7.4-10.4); MONOCYTES 13.1 % (2-11); NEUTROPHILS 56.2 % (40-80)
[2019-12-23 06:59] LABS: PLATELET COUNT 192 10x3/uL (130-400)
--- NOTE | 2019-12-23 07:00 | NUR ---
RECEIVED REPORT. ASSUMED CARE OF PATIENT. PATIENT REMAINS IN ISOLATION AT THIS TIME.
[2019-12-23 07:01] LABS: APTT 27.1 SECONDS (22.8-39.4); INR 1.07 (0.85-1.17); PROTIME 13.9 SECONDS (11.6-15.0)
[2019-12-23 07:02] LABS: D-DIMER-QUANTITATIVE 0.36 ug/mLFEU (0.20-0.54)
[2019-12-23 07:13] LABS: ANION GAP 9.7 mmol/L (8-16); CALCIUM 8.3 mg/dL (8.5-10.1); CARBON DIOXIDE 28.5 mmol/L (21.0-32.0); MAGNESIUM - SERUM 1.6 mg/dL (1.8-2.4); PHOSPHOROUS 3.1 mg/dL (2.5-4.9); POTASSIUM - SERUM 4.2 mmol/L (3.5-5.1)
[2019-12-23 07:20] LABS: CREATININE - SERUM 1.1 mg/dL (0.6-1.3)
[2019-12-23 09:30] VITALS: BP 135/74
--- NOTE | 2019-12-23 09:45 | NUR ---
PERSON BY THE NAME OF DR. TERESA TAYLOR CALLED AND STATED HE WAS THE PATIENTS DOCTOR AND WAS REQUESTING AND UPDATE ON THE PATIENT. KNOWING THAT THE PATIENT BELONGS TO [facility], THIS GOLD LEAF ROLLER ASKED WHOM IS AND SHE STATES THAT IS HER BROTHER IN LAW, HE IS A RETIRED DOCTOR BUT USED TO TREAT HER IN THE PAST. SHE STATES THEY PROBABLY CALLED BECAUSE HER SISTER WANTS TO KNOW WHAT IS GOING ON. PATIENT INFORMED NO INFORMATION WAS PROVIDED BY THE ICE [employer]AM SCOOPER AT THE TIME THE PERSON CALLED REQUESTING INFORMATION.
[2019-12-23 10:26] VITALS: Ht 165.1 cm; Wt 70.3 kg
[2019-12-23 12:00] VITALS: BP 148/63
--- NOTE | 2019-12-23 12:28 | NUR ---
FSBS 158. 4 U NITS HUMALOG ADMINISTERED P[ER SLIDING SCALE.
--- NOTE | 2019-12-23 12:30 | NUR ---
INFORMED PATIENT STOOL IS SOLID AND UNABLE TO BE SENT FOR CDT.
--- NOTE | 2019-12-23 14:40 | NUR ---
PATIENT GAVE VERBAL CONSENT FOR THIS CLINICAL RESEARCH PHYSICIAN TO SPEAK TO HER GRANDDAUGHTER ABOUT HER CONDITION.
[2019-12-23 16:09] VITALS: BP 157/71
--- NOTE | 2019-12-23 16:12 | NUR ---
RESTING IN BED. NO DISTRESS. PATIENT NOW OOB AMBULATING AROUND ROOM. THIS MANAGER STATISTICAL PROGRAMMING PROVIDED PATIENT WITH BAG OF BELONGINGS THAT HER GRANDDAUGHTER BROUGHT.
--- NOTE | 2019-12-23 19:40 | NUR ---
RECIEVED UP IN BEED WITH EYES OPEN AND TV ON. ALERT AND ORIENTED X4. VOICES EXCITEMENT OVER GOING HOME TOMORROW. IV TO RT FA WITH NS AT 100CC/HR. ON ROOM AIR. CONTINUES TO HAVE A FREQUENT DRY COUGH. REMAINS ON ROOM AIR. DENIES ANY NEEDS AT THIS TIME.
[2019-12-24 00:39] VITALS: BP 145/77
[2019-12-24 06:02] LABS: BASOPHILS 0.6 % (0-2); EOSINOPHILS 12.1 % (0-7); HEMATOCRIT 34.8 % (36.0-48.0); IMMATURE GRANULOCYTES 1.5 % (0-5); LYMPHOCYTES 32.6 % (15-50); MCH 27.8 pg (26.0-34.0); MCHC 31.6 g/dL (31.0-37.0); MCV 87.9 fL (80.0-100.0); MEAN PLATELET VOLUME 9.7 fL (7.4-10.4); MONOCYTES 10.8 % (2-11); NEUTROPHILS 42.4 % (40-80); PLATELET COUNT 201 10x3/uL (130-400); RBC 3.96 10x6/uL (4.00-5.40); RDW 13.9 % (11.5-14.5); WBC 4.8 10x3/uL (4.8-10.8)
[2019-12-24 06:13] LABS: CALCIUM 8.2 mg/dL (8.5-10.1); CARBON DIOXIDE 25.5 mmol/L (21.0-32.0); CREATININE - SERUM 0.9 mg/dL (0.6-1.3); MAGNESIUM - SERUM 1.4 mg/dL (1.8-2.4)
[2019-12-24 06:16] LABS: POTASSIUM - SERUM 3.5 mmol/L (3.5-5.1)
--- NOTE | 2019-12-24 08:49 | NUR ---
PT RECEIVED UP AND AROUND IN ROOM, ASKING ABOUT TAKING A SHOWER. IV INFILTRATED IN NIGHT SO WILL REMOVE AND PT POSSIBLY GOING HOME SO WILL EVALUATE NEED. HOLDEN TEIXEIRA NOTIFIED.
[2019-12-24 09:22] VITALS: BP 158/83
[2019-12-24] MEDS ORDERED: FLAGYL500 MG PO (15:21)
--- NOTE | 2019-12-24 16:10 | MORECARE ---
CASE MANAGEMENT DISCHARGE SUMMARY PATIENT: IRAM QUIGLEY UNIT: [id number] ADM DATE: 12/22/19 AGE: 79 : 39 SEX: F ROOM/BED: D.2131 AUTHOR: SARAH GANDARA PHYSICIAN: REFERRING PHYSICIAN: KIKI KENYON MD DATE OF SERVICE: 12/24/19 Discharge Plan Patient Name: IRAM QUIGLEY Facility: [facility]:[place] : 1940 Planned Disposition: Home Anticipated Discharge Date: Discharge Date: Expected LOS: Initial Reviewer: [email or web address] Initial Review Date: 12/22/2019 Generated: 12/24/19 5:09 pm DCPIA - Discharge Planning Initial Assessment Updated by [email or web address]: Faith Suarez on 12/24/19 4:08 pm * Is the patient Alert and Oriented? Yes * How many steps to enter\exit or inside your home? 0/0 * PCP VICENTE * Pharmacy [facility]/ [facility] [address] * Preadmission Environment Home with Family * ADLs Independent * Equipment None * List name and contact numbers for known caregivers / representatives who currently or will assist patient after discharge: NAHUN [phone] * Community resources currently utilized None * Additional services required to return to the preadmission environment? No * Can the patient safely return to the preadmission environment? Yes * Has this patient been hospitalized within the prior 30 days at any hospital? Yes Patient Name: IRAM QUIGLEY Page 19718 at 1610 All edits/amendments must be made on the electronic document DICTATION DATE: 12/24/19 1609 COMBINATION BUILDING INSPECTOR: VENKATA 12/24/19 1609 RPT#: [id number] DC DATE: STATUS: ADM IN [facility] [address] [place] [address] END OF REPORT
--- NOTE | 2019-12-24 16:23 | MORECARE ---
CASE MANAGEMENT DISCHARGE SUMMARY PATIENT: IRAM QUIGLEY UNIT: [id number] ADM DATE: 12/22/19 AGE: 79 : 39 SEX: F ROOM/BED: D.6926 AUTHOR: NICHOL,DOC PHYSICIAN: REFERRING PHYSICIAN: KIKI KENYON MD DATE OF SERVICE: 12/24/19 Discharge Plan Patient Name: IRAM QUIGLEY Facility: [facility]:[place] : 1940 Planned Disposition: Home Anticipated Discharge Date: Discharge Date: Expected LOS: Initial Reviewer: [email or web address] Initial Review Date: 12/22/2019 Generated: 12/24/19 5:23 pm Comments DCP- Discharge Planning Updated by [email or web address]: Faith Suarez on 12/24/19 3:[address] Patient Name: IRAM QUIGLEY Admission Status: ER Accout number: [id number] Admission Date: 12-22-2019 : 1940 Admission Diagnosis: Attending: KIKI KENYON Current LOS: 2 Anticipated DC Date: Planned Disposition: Home Primary Insurance: MEDICARE A & B Discharge Planning Comments: CM met with patient to complete initial dc planning assessment. CM educated patient on the CM role and verbal consent given by patient to complete assessment. CM verified patient's address, phone number, and emergency contact phone numbers. Patient lives at home with her Markus [phone]. Prior to hospitalization the patient expresses she was independent, and states she has no needs at this time. States she feels she can remain independent. At discharge patient plans to return home and feels this is a safe discharge. CM discussed availability of home health, rehab services, and medical equipment. Patient states she will return home with Patient denied known discharge needs at this time. Transportation provider at discharge will be Markus . DC IMM delivered via phone call for infection prevention. DC IMM explained. Patient verbalized understanding. . Faith Suarez MSN,RN,CM DCPIA - Discharge Planning Initial Assessment Updated by [email or web address]: Faith Suarez on 12/24/19 4:08 pm * Is the patient Alert and Oriented? Yes * How many steps to enter\exit or inside your home? 0/0 * PCP ZHANG * Pharmacy [facility]IL ORDER/ [facility] [address] * Preadmission Environment Home with Family * ADLs Independent * Equipment None * List name and contact numbers for known caregivers / representatives who currently or will assist patient after discharge: MARKUS [phone] * Community resources currently utilized None * Additional services required to return to the preadmission environment? No * Can the patient safely return to the preadmission environment? Yes * Has this patient been hospitalized within the prior 30 days at any hospital? Yes Coverage Notice Reviewer: [id number] Tracie Suarez Notice Issued Date-Time: 12/24/2019 15:50 Notice Type: IM Discharge Notice Notice Delivered To: Patient Relationship to Patient: Seed Cleaning Manager Name: Delivery Method: PHONE - Phone [place] Days: Prior Verbal Notification: Recipient Understood Notice: Yes Recipient Signature: Med Rec Note Co-signed by Attending: Coverage Notice Comment: Last DP export: 12/24/19 3:10 p Patient Name: IRAM QUIGLEY Page 25473 at 1623 All edits/amendments must be made on the electronic document DICTATION DATE: 12/24/19 162 VICE PRESIDENT OF PRODUCT MARKETING: VENKATA 12/24/19 1623 RPT#: [id number] DC DATE: STATUS: ADM IN [facility] [address] [place] [address] END OF REPORT
--- NOTE | 2019-12-24 16:44 | NUR ---
PT DISCHARGE INSTRUCTIONS REVIEWED, DOUBLE WITNESS SIGN DUE TO COVID 19 PT AND ISOLATION. WHEELED TO FRONT DOOR VIA WHEELCHAIR. IV ALREADY REMOVED.
--- NOTE | 2019-12-25 08:50 | MORECARE ---
CASE MANAGEMENT DISCHARGE SUMMARY PATIENT: IRAM QUIGLEY UNIT: [id number] ADM DATE: 12/22/19 AGE: 79 : 39 SEX: F ROOM/BED: D.7680 AUTHOR: SARAH GANDARA PHYSICIAN: REFERRING PHYSICIAN: KIKI KENYON MD DATE OF SERVICE: 12/25/19 Discharge Plan Patient Name: IRAM QUIGLEY Facility: [facility]:[place] : 1940 Planned Disposition: Home Anticipated Discharge Date: Discharge Date: 12/24/2019 Expected LOS: Initial Reviewer: [email or web address] Initial Review Date: 12/22/2019 Generated: 12/25/19 9:49 am Comments DCP- Discharge Planning Updated by [email or web address]: Faith Suarez on 12/24/19 3:[address] Patient Name: IRAM QUIGLEY Admission Status: ER Accout number: [id number] Admission Date: 12-22-2019 : 1940 Admission Diagnosis: Attending: KIKI KENYON Current LOS: 2 Anticipated DC Date: Planned Disposition: Home Primary Insurance: MEDICARE A & B Discharge Planning Comments: CM met with patient to complete initial dc planning assessment. CM educated patient on the CM role and verbal consent given by patient to complete assessment. CM verified patient's address, phone number, and emergency contact phone numbers. Patient lives at home with her Markus [phone]. Prior to hospitalization the patient expresses she was independent, and states she has no needs at this time. States she feels she can remain independent. At discharge patient plans to return home and feels this is a safe discharge. CM discussed availability of home health, rehab services, and medical equipment. Patient states she will return home with Patient denied known discharge needs at this time. Transportation provider at discharge will be Markus . DC IMM delivered via phone call for infection prevention. DC IMM explained. Patient verbalized understanding. . Faith Suarez MSN,RN,CM DCPIA - Discharge Planning Initial Assessment Updated by [email or web address]: Faith Suarez on 12/24/19 4:08 pm * Is the patient Alert and Oriented? Yes * How many steps to enter\exit or inside your home? 0/0 * PCP VICENTE * Pharmacy [facility] ORDER/ [facility] [address] * Preadmission Environment Home with Family * ADLs Independent * Equipment None * List name and contact numbers for known caregivers / representatives who currently or will assist patient after discharge: MARKUS [phone] * Community resources currently utilized None * Additional services required to return to the preadmission environment? No * Can the patient safely return to the preadmission environment? Yes * Has this patient been hospitalized within the prior 30 days at any hospital? Yes Coverage Notice Reviewer: [email or web address] Tracie Suarez Notice Issued Date-Time: 12/24/2019 15:50 Notice Type: IM Discharge Notice Notice Delivered To: Patient Relationship to Patient: Oyster Farmer Name: Delivery Method: PHONE - Phone [place] Days: Prior Verbal Notification: Recipient Understood Notice: Yes Recipient Signature: Med Rec Note Co-signed by Attending: Coverage Notice Comment: Last DP export: 12/24/19 3:23 p Patient Name: IRAM QUIGLEY Page 71230 at 0850 All edits/amendments must be made on the electronic document DICTATION DATE: 12/25/1949 NEURO OPHTHALMOLOGIST: VENKATA 12/25/19 0849 RPT#: [id number] DC DATE:12/24/19 STATUS: DIS IN [facility] [address] [place] [address] END OF REPORT
--- NOTE | 2019-12-25 09:06 | MORECARE ---
CASE MANAGEMENT DISCHARGE SUMMARY PATIENT: IRAM QUIGLEY UNIT: [id number] ADM DATE: 12/22/19 AGE: 79 : 39 SEX: F ROOM/BED: D.7425 AUTHOR: SARAH GANDARA PHYSICIAN: REFERRING PHYSICIAN: KIKI KENYON MD DATE OF SERVICE: 12/25/19 Discharge Plan Patient Name: IRAM QUIGLEY Facility: [facility]:[place] : 1940 Planned Disposition: Home Anticipated Discharge Date: Discharge Date: 12/24/2019 Expected LOS: Initial Reviewer: [email or web address] Initial Review Date: 12/22/2019 Generated: 12/25/19 10:05 am Comments DCP- Discharge Planning Updated by [id number]: Faith Suarez on 12/24/19 3:[address] Patient Name: IRAM QUIGLEY Admission Status: ER Accout number: [id number] Admission Date: 12-22-2019 : 1940 Admission Diagnosis: Attending: KIKI KENYON Current LOS: 2 Anticipated DC Date: Planned Disposition: Home Primary Insurance: MEDICARE A & B Discharge Planning Comments: CM met with patient to complete initial dc planning assessment. CM educated patient on the CM role and verbal consent given by patient to complete assessment. CM verified patient's address, phone number, and emergency contact phone numbers. Patient lives at home with her Markus [phone]. Prior to hospitalization the patient expresses she was independent, and states she has no needs at this time. States she feels she can remain independent. At discharge patient plans to return home and feels this is a safe discharge. CM discussed availability of home health, rehab services, and medical equipment. Patient states she will return home with Patient denied known discharge needs at this time. Transportation provider at discharge will be Markus . DC IMM delivered via phone call for infection prevention. DC IMM explained. Patient verbalized understanding. . Faith Suarez MSN,RN,CM DCPIA - Discharge Planning Initial Assessment Updated by [email or web address]: Faith Suarez on 12/24/19 4:08 pm * Is the patient Alert and Oriented? Yes * How many steps to enter\exit or inside your home? 0/0 * PCP VICENTE * Pharmacy MAIL ORDER/ [facility] [address] * Preadmission Environment Home with Family * ADLs Independent * Equipment None * List name and contact numbers for known caregivers / representatives who currently or will assist patient after discharge: MARKUS MAGDALENO [phone] * Community resources currently utilized None * Additional services required to return to the preadmission environment? No * Can the patient safely return to the preadmission environment? Yes * Has this patient been hospitalized within the prior 30 days at any hospital? Yes Coverage Notice Reviewer: [email or web address] Tracie Suarez Notice Issued Date-Time: 12/24/2019 15:50 Notice Type: IM Discharge Notice Notice Delivered To: Patient Relationship to Patient: Dress Draper Name: Delivery Method: PHONE - Phone [place] Days: Prior Verbal Notification: Recipient Understood Notice: Yes Recipient Signature: Med Rec Note Co-signed by Attending: Coverage Notice Comment: Last DP export: 12/25/19 7:50 a Patient Name: IRAM QUIGLEY Page 87012 at 0906 All edits/amendments must be made on the electronic document DICTATION DATE: 12/25/19904 LACQUER SIZER: VENKATA 12/25/19904 RPT#: [id number] DC DATE:12/24/19 STATUS: DIS IN [facility] [address] [place] [address] END OF REPORT
[2019-12-27 15:09] LABS: OVA + PARASITE EXAM Final report (())
== END 2019-12-24 16:46 | disposition home or self-care (01) | DRG 194 ==
LOC: D.ER 11:27 → D.M2 18:10
PROVIDERS: Family Medicine; ADMIT Internal Medicine Nephrology; ATTEND Internal Medicine Nephrology
DX: J18.9 Pneumonia, unspecified organism (principal); N17.9 Acute kidney failure, unspecified; I47.1 Supraventricular tachycardia; J40 Bronchitis, not specified as acute or chronic; R55 Syncope and collapse; I10 Essential (primary) hypertension; E78.5 Hyperlipidemia, unspecified; E11.40 Type 2 diabetes mellitus with diabetic neuropathy, unspecified; G89.29 Other chronic pain; M54.9 Dorsalgia, unspecified; E86.9 Volume depletion, unspecified; R09.82 Postnasal drip; R19.7 Diarrhea, unspecified; K64.9 Unspecified hemorrhoids; D64.9 Anemia, unspecified; Z20.828 Contact with and (suspected) exposure to other viral communicable diseases

== ENCOUNTER → 2020-02-01 12:55 | Outpatient (CLI) | payer MEDICARE, BC ==
[2019-12-23 10:26] VITALS: BMI 25.7
[~2020-02-01 12:55] MED LIST changes: +FLAGYL500 MG PO
== END | disposition home or self-care (01) ==
LOC: D.HCCECHO 12:55
PROVIDERS: ATTEND Internal Medicine Cardiovascular Disease
DX: I35.1 Nonrheumatic aortic (valve) insufficiency (principal); R53.83 Other fatigue; R06.02 Shortness of breath; I48.91 Unspecified atrial fibrillation